=== PATIENT | female | born 1970 | race Caucasian/White ===

== ENCOUNTER 2017-01-03 16:02 | Emergency (ER) | payer OTHER ==
[~2017-01-03] VITALS: Ht 162.6 cm; Wt 91.6 kg
--- NOTE | ~2017-01-03 | EKG ---
PATIENT: MALI LIGHT UNIT #: [id number] Ventricular Rate: 86 BPM Atrial Rate: 86 BPM P-R Interval: 142 ms QRS Duration: 86 ms Q-T Interval: 368 ms QTC Calculation(Bezet): 440 ms P Stanley: 56 degrees Calculated R Stanley: 71 degrees Calculated T Stanley: 34 degrees Diagnosis Line: Normal sinus rhythm Diagnosis Line: Normal ECG Diagnosis Line: When compared with ECG of 08-JUN-2013 19:48, Diagnosis Line: No significant change was found Diagnosis Line: Confirmed by JOLANTA GOLDSTEIN MD ([id number]) on Diagnosis Line: 01/04/2017 12:33:46 AM INTERPRETING MD: TRISTON MANCIA
--- NOTE | ~2017-01-03 | CR72 ---
[facility] A Service of [facility] RADIOLOGY TEXT RESULTS PATIENT: MALI LIGHT LOCATION: [facility] : [birth year] UNIT #: [id number] AGE: [address]: Krzysztof Bernabe MD SEX: F ORDER DR: [id number] [facility] [address] [place], [place] [address] [id number] E MR#: [id number] Acc #: [id number] NAME: MALI LIGHT : 1970 SEX: F STUDY DATE/TIME: 01/03/2017 16:43 UNIT: [facility] ROOM: STUDY DESCRIPTION: CR Chest Single View Portable Attending Physician: Krzysztof Bernabe M.D. Ordering Physician: Krzysztof Bernabe M.D. Primary Care Physician: Josephine Thomson Aprn MEDICAL IMAGING REPORT This report is preliminary unless electronic signature is present EXAM Portable chest 01/03/2017. HISTORY Chest pain, cough and chest congestion beginning today. Emphysema, COPD, asthma. Smoking history for 30 years. FINDINGS A single AP portable view of the chest shows both lungs to be clear. The heart is normal in size. The mediastinal contour is normal. No significant bone abnormalities are seen. IMPRESSION Normal portable chest. Dictated by... Magnus Guzman M.D. THIS IS AN ELECTRONICALLY VERIFIED REPORT Magnus Guzman M.D. at 01/04/2017 2:06 PM SYEDA/leonidas TD: 01/03/2017 19:37 JOB #: [id number] MEDICAL IMAGING REPORT Page 1 of 1 COPY
[~2017-01-03 16:02] MED LIST: ACETAMINOPHEN PO; AMOXICILLIN500 M1 PO; ASPIRIN PO; CHANTIX1 MG PO; DIFLUCAN PO; FLAGYL PO; FLEXERIL10 MG PO; IBUPROFEN; LIDOCAINE VISCOU1 ML EXT; MEDROL DOSEPAK4 MG DOB; MEDROL DOSEPAK4 MG PO; MOBIC PO; MOTRIN600 M1 PO; NAPROSYN500 MG PO; NO MEDICATIONS; ORUDIS75 M1 PO; PRILOSEC PO
[2017-01-03] MEDS ORDERED: ALBUTEROL17 GM INH (16:29)
[2017-01-03] MEDS ORDERED: LEVOXYL50 MC1 PO (16:29)
[2017-01-03 17:14] LABS: POC - CKMB <1.0 ng/mL (0.0-7.9); POC - TROPONIN <0.05 ng/mL (<=0.05)
[2017-01-03 17:16] LABS: BASOPHIL# 0.1 X10e3 (0-0.3); EOSINOPHIL# 0.2 X10e3 (0-0.7); EOSINOPHIL% 2.5 % (0.0-7.0); HEMATOCRIT 40.6 % (35.0-45.0); HEMOGLOBIN 13.8 gm/dL (12.0-16.0); LYMPHOCYTE# 2.4 X10e3 (1.0-3.5); LYMPHOCYTE% 31.2 % (17.0-45.0); MEAN CELL VOLUME 82.8 FL (83-96); MEAN CORPUSCULAR HEMOGLOBIN 28.1 PG (28-34); MONOCYTE# 0.5 X10e3 (0-1.0); MONOCYTE% 6.9 % (3.0-12.0); NEUTROPHIL# 4.4 X10e3 (1.5-7.1); NEUTROPHIL% 58.4 % (40-75); PLATELET COUNT 197 X10e3 (140-420); RED CELL DISTRIBUTION WIDTH 15.1 % (11.0-15.5); WHITE BLOOD COUNT 7.6 X10e3 (4.0-10.5)
[2017-01-03 17:19] LABS: DIFF IND NO
[2017-01-03 17:41] LABS: ALBUMIN SERUM 3.9 g/dL (3.5-5.0); BILIRUBIN, DIRECT 0.1 mg/dL (0.0-0.2); BILIRUBIN,INDIRECT 0.6 mg/dL (0.0-0.9); BILIRUBIN,TOTAL 0.7 mg/dL (0.2-2.0); BUN/CREATININE RATIO 21.66; CALCIUM SERUM 9.1 mg/dL (8.4-10.2); CREATININE SERUM 0.6 mg/dL (0.6-1.4); GLOM FILT RATE Estimated 107.8 mL/min (>60); POTASSIUM 3.3 mmol/L (3.5-5.1); PROTEIN TOTAL SERUM 7.1 g/dL (6.0-8.3)
[2017-01-03 18:38] LABS: POC - CKMB <1.0 ng/mL (0.0-7.9); POC - TROPONIN <0.05 ng/mL (<=0.05)
== END 2017-01-03 18:50 | disposition home or self-care (01) ==
LOC: CED 16:02
PROVIDERS: Emergency Medicine
DX: R07.89 Other chest pain (principal); I25.2 Old myocardial infarction; F17.200 Nicotine dependence, unspecified, uncomplicated; Z79.899 Other long term (current) drug therapy
CPT/HCPCS: 36415; 71010; 80048; 80076; 82553; 83690; 84484; 85025; 93005; 99285